=== PATIENT | male | born 1985 | race Caucasian/White ===

== ENCOUNTER 2023-12-26 14:37 | Emergency (ER) | payer MEDICAID ==
[~2023-12-26] VITALS: Ht 167.6 cm; Wt 76.2 kg
[2023-12-26 15:09] VITALS: BP 109/69; PULSE 62; RESP 16; TEMP 97; O2SAT 99
[2023-12-26] MEDS ORDERED: IBUP-2213 PO (16:17)
== END 2023-12-26 16:25 | disposition left against medical advice (07) ==
LOC: MED 14:37
DX: S39.012A Strain of muscle, fascia and tendon of lower back, initial encounter (principal); M79.641 Pain in right hand; R51.9 Headache, unspecified; Z79.899 Other long term (current) drug therapy; V89.2XXA Person injured in unspecified motor-vehicle accident, traffic, initial encounter; Y93.89 Activity, other specified; Y92.410 Unspecified street and highway as the place of occurrence of the external cause; Y99.8 Other external cause status
CPT/HCPCS: 99283

== ENCOUNTER 2024-01-07 16:15 | Emergency (ER) | payer MEDICAID, OTHER ==
[~2024-01-07] VITALS: Ht 167.6 cm; Wt 76.2 kg
[~2024-01-07 16:15] MED LIST: IBUP-2213 PO
[2024-01-07 16:27] VITALS: BP 115/66; PULSE 107; RESP 18; TEMP 99.1; O2SAT 100
[2024-01-07] MEDS ORDERED: ACET-10509 PO (17:37)
[2024-01-07 19:43] VITALS: BP 134/70; PULSE 85; RESP 18; TEMP 98.3; O2SAT 99
== END 2024-01-07 19:42 | disposition home or self-care (01) ==
LOC: MED 16:15
DX: S69.91XA Unspecified injury of right wrist, hand and finger(s), initial encounter (principal); Z79.899 Other long term (current) drug therapy; V79.9XXA Bus occupant (driver) (passenger) injured in unspecified traffic accident, initial encounter; Y93.89 Activity, other specified; Y92.410 Unspecified street and highway as the place of occurrence of the external cause; Y99.8 Other external cause status
CPT/HCPCS: 73130; 99283